=== PATIENT | female | born 2005 | race Caucasian/White ===

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

== ENCOUNTER → 2025-01-09 | Outpatient (REF) | payer OTHER, MEDICAID ==
[~2025-01-09] MED LIST changes: +PRENTAB9 PO
[2025-01-09 18:05] LABS: BASO # 0.1 10^3/uL (0.0-0.2); EOS # 0.8 10^3/uL (0.0-0.5); HEMATOCRIT 41.9 % (36.0-47.0); HEMOGLOBIN 13.5 g/dl (12.0-15.5); LYMPH # 1.7 10^3/uL (1.5-5.0); MEAN CORPUSCULAR HGB CONC 32.2 g/dl (32.0-36.5); MEAN CORPUSCULAR VOLUME 89.9 fl (80.0-96.0); MONO # 0.6 10^3/uL (0.0-0.8); MONO % 5.9 % (2.0-8.0); NEUTROPHILS # 6.8 10^3/uL (1.5-8.5); PLATELET COUNT, AUTOMATED 272 10^3/uL (150-450); RED BLOOD COUNT 4.66 10^6/uL (4.00-5.40); WHITE BLOOD COUNT 9.9 10^3/uL (4.0-10.0)
[2025-01-09 18:10] LABS: BLOOD UREA NITROGEN 8 MG/DL (9-23); CALCIUM LEVEL 8.9 MG/DL (8.5-10.1); CARBON DIOXIDE LEVEL 26 MMOL/L (20-31); CHLORIDE LEVEL 108 MMOL/L (98-107); CREATININE FOR GFR 0.65 MG/DL (0.55-1.30); GLOMERULAR FILTRATION RATE > 90.0 (>60); GLUCOSE, FASTING 68 MG/DL (60-100); POTASSIUM SERUM 4.3 MMOL/L (3.5-5.1); SODIUM LEVEL 141 MMOL/L (136-145)
[2025-01-09 18:18] LABS: THYROID STIMULATING HORMONE 0.964 uIU/ML (0.48-4.17); TOTAL 25(OH) VITAMIN D 7.5 NG/ML (20.0-100.0)
== END ==
LOC: M LAB REF 17:15
PROVIDERS: ATTEND Physician Assistant
DX: L73.2 Hidradenitis suppurativa (principal); Z13.9 Encounter for screening, unspecified; E55.9 Vitamin D deficiency, unspecified